=== PATIENT | male | born 1955 | race African-American/Black ===

== ENCOUNTER → 2019-11-17 | Outpatient (CLI) | payer SELFPAY ==
[~2019-11-17] VITALS: Ht 180.3 cm; Wt 69.0 kg
[~2019-11-17] MED LIST: ZESTRIL 5MG5 MG PO
[2019-11-17 09:30] VITALS: BP 157/96; PULSE 82
--- NOTE | 2019-11-17 10:06 | NUR ---
Dr Carmen notified of elevated bp. 210/116 recheck 186/105. Dr Carmen wants pt to wait and recheck in 30 minutes.
[2019-11-17 11:27] VITALS: BP 165/87; PULSE 71
[2019-11-17 11:31] VITALS: BP 147/84; PULSE 105
[2019-11-17 11:32] VITALS: BP 173/88; PULSE 101
[2019-11-17 11:33] VITALS: BP 171/90; PULSE 98
== END ==
LOC: COL.CARD 09:35
DX: I50.22 Chronic systolic (congestive) heart failure (principal)
CPT/HCPCS: A9500; J2785

== ENCOUNTER 2021-01-29 06:51 | Day surgery (SDC) | payer MEDICARE ==
[2021-01-29] VITALS (494 sets, daily range): BP systolic 127–177; BP diastolic 76–100; PULSE 57–76; TEMP 97.5–97.8; O2SAT 92–100
[~2021-01-29] VITALS: Ht 180.3 cm; Wt 74.9 kg
[~2021-01-29 06:51] MED LIST changes: +ZESTRIL 20MG TA20 MG PO; -ZESTRIL 5MG5 MG PO
[2021-01-29 08:23] LABS: HEMATOCRIT 44.8 % (42.0-52.0); HEMOGLOBIN 14.9 g/dl (13.5-18.0); MEAN CELL VOLUME 95 fl (80.0-100.0); MEAN CORPUSCULAR HEMOGLOBIN 32 pg (27.0-31.0); MEAN CORPUSCULAR HGB CONC 33 g/dl (33.0-37.0); MEAN PLATELET VOLUME 9.5 fl (7.4-10.4); PLATELET COUNT 199 K/mm3 (130-400); RED BLOOD COUNT 4.72 M/mm3 (4.20-5.60); REDCELL DISTRIBUTION WIDTH-CV 13.1 % (11.5-14.5)
[2021-01-29] MEDS ORDERED: COREG 25MG25 MG/TAB PO (08:24)
[2021-01-29] MEDS ORDERED: NORVASC 5MG5 MG/TAB PO (08:24)
[2021-01-29] MEDS ORDERED: ASPIRIN 81M81 MG/TA2 PO (08:25)
[2021-01-29 08:27] LABS: PROTHROMBIN TIME 11.2 SECONDS (9.7-12.8)
[2021-01-29 08:30] LABS: PARTIAL THROMBOPLASTIN TIME 34.3 SECONDS (26.0-37.0)
[2021-01-29 08:32] LABS: CALCIUM 9.1 mg/dL (8.4-10.2); CREATININE, serum 1.22 (0.66-1.25)
--- NOTE | 2021-01-29 08:55 | NUR ---
Pt to procedure at this time.
--- NOTE | 2021-01-29 09:14 | NUR ---
SEE MERGE FOR ALL MEDICATION ADMINSTRATION TIMES, INTRA AND POST SEDATION ASSESSMENTS
--- NOTE | 2021-01-29 10:24 | NUR ---
Report received pt to transfer to room
--- NOTE | 2021-01-29 12:01 | NUR ---
PATIENT ARRIVES TO ICU 1. HE IS EDUCATED ON RIGHT WRIST RESTRICTIONS AND ORIENTED TO ROOM. CALL LIGHT WITHIN REACH. BP HYPERTENSIVE. WILL SPEAK TO DR. MEDINA TO SEE IF HE WANTS TO MEDICATE PATIENT.
--- NOTE | 2021-01-29 12:15 | NUR ---
ORDERS RECEIVED TO GIVE AMLODIPINE AND LISINOPRIL NOW FOR ELEVATED BP. PATIENT STATES THAT HE DID NOT TAKE HIS MORNING MEDICATION THIS MORNING. DR. MEDINA NOTIFIED OF THIS.
--- NOTE | 2021-01-29 19:00 | NUR ---
REPORT GIVEN TO DAGO TORRES
--- NOTE | 2021-01-29 20:00 | NUR ---
Assessment complete. Pt is AXO X3, denies having any pain at this time. Pt is sitting up in the bed eating his dinner at this time and he denies further needs. Call light within reach.
[2021-01-30] VITALS (404 sets, daily range): BP systolic 116–140; BP diastolic 72–89; PULSE 51–65; TEMP 97.5–97.6; O2SAT 91–100
--- NOTE | 2021-01-30 07:06 | NUR ---
Bedside shift report given to DAGO Garcia.
[2021-01-30] MEDS ORDERED: BRILINTA90 MG PO (07:12)
[2021-01-30] MEDS ORDERED: LIPITOR20 MG PO (07:13)
--- NOTE | 2021-01-30 09:05 | NUR ---
FOLLOW UP APPT MADE YOVANI JAIMES APRN ON January AT 3:30 PM
--- NOTE | 2021-01-30 09:05 | NUR ---
PATIENT DISCHARGED WITH . DISCHARGE PACKET AND INFORMATION REVIEWED.
--- NOTE | 2021-01-30 09:25 | NUR ---
Initial visit; Patient thanked [employer]ician for looking in on him and keeping him in [employer] Technician;s prayers.
== END 2021-01-30 08:40 | disposition home or self-care (01) ==
LOC: COL.CAR 06:51 → ICU 11:25 → COL.CAR 01-30 08:40
PROVIDERS: Internal Medicine Cardiovascular Disease
DX: I25.10 Atherosclerotic heart disease of native coronary artery without angina pectoris (principal); I11.0 Hypertensive heart disease with heart failure; I50.20 Unspecified systolic (congestive) heart failure; I34.0 Nonrheumatic mitral (valve) insufficiency; Z20.822 Contact with and (suspected) exposure to COVID-19
CPT/HCPCS: OP; C1725; C1769; C1874; C1887; C9607; C9608; J1644; J2250; J3010; J7030